=== PATIENT | male | born 1995 | race American Indian/Alaskan Native ===

== ENCOUNTER 2021-07-09 19:28 | Emergency (ER) | payer OTHER ==
[2021-07-09 19:58] VITALS: BP 144/65
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
== END 2021-07-09 21:29 | disposition home or self-care (01) ==
LOC: ED 19:28
DX: S00.511A Abrasion of lip, initial encounter (principal); M25.512 Pain in left shoulder; M54.6 Pain in thoracic spine; F17.200 Nicotine dependence, unspecified, uncomplicated; V49.40XA Driver injured in collision with unspecified motor vehicles in traffic accident, initial encounter; Y93.89 Activity, other specified; Y92.89 Other specified places as the place of occurrence of the external cause; Y99.8 Other external cause status
CPT/HCPCS: 99282